=== PATIENT | male | born 1960 | race Hispanic/Latino ===

== ENCOUNTER 2021-09-19 21:06 | Emergency (ER) | payer BC ==
[~2021-09-19] VITALS: Ht 167.6 cm; Wt 99.8 kg
[2021-09-19 21:12] VITALS: BP 150/85
[2021-09-19] MEDS ORDERED: CEPH500B PO (21:57)
[2021-09-19] MEDS ORDERED: IBUPROFEN 600 MG TABLET PO ONE (22:00)
[2021-09-19] MEDS ORDERED: DIPH,PERTUSS(ACELL),TET VAC/PF 0.5 ML VIAL IM ONE (22:00)
== END 2021-09-19 22:14 | disposition home or self-care (01) ==
LOC: EDH 21:06
DX: S81.012A Laceration without foreign body, left knee, initial encounter (principal); Z98.890 Other specified postprocedural states; W26.8XXA Contact with other sharp object(s), not elsewhere classified, initial encounter; Y93.89 Activity, other specified; Y92.89 Other specified places as the place of occurrence of the external cause; Y99.8 Other external cause status
CPT/HCPCS: 90471; 90715